=== PATIENT | male | born 1950 | race Caucasian/White ===

== ENCOUNTER 2019-01-30 08:54 | Day surgery (SDC) | payer MEDICARE ==
[2019-01-29 16:15] LABS: BASOPHILS # (AUTO) 0.1 X10'3 (0-0.2); BASOPHILS % (AUTO) 0.7 % (0-1); EOSINOPHILS # (AUTO) 0.5 X10'3 (0-0.9); EOSINOPHILS % (AUTO) 5.3 % (0-6); LYMPHOCYTES # (AUTO) 1.2 X10'3 (1.1-4.8); LYMPHOCYTES % (AUTO) 14.3 % (21-51); MEAN CORPUSCULAR HEMOGLOBIN 32.4 PG (27.0-31.0); MEAN CORPUSCULAR HGB CONC 33.7 g/dL (33.0-36.5); MEAN CORPUSCULAR VOLUME 95.9 FL (78-98); MONOCYTES % (AUTO) 11.2 % (2-12); NEUTROPHILS # (AUTO) 5.9 X10'3 (1.8-7.7); NEUTROPHILS % (AUTO) 68.5 % (42-75); PRE OP HEMATOCRIT 42.9 % (42.0-52.0); PRE OP HEMOGLOBIN 14.5 g/dL (14.0-17.9); PRE OP PLATELET COUNT 198 X10'3 (140-440); RED BLOOD COUNT 4.47 X10'6 (4.70-6.10)
[2019-01-29 16:27] LABS: ALBUMIN 3.6 G/DL (3.4-5.0); ALBUMIN/GLOBULIN RATIO 0.9 (1.1-1.5); ALKALINE PHOSPHATASE 89 IU/L (46-116); BLOOD UREA NITROGEN 15 MG/DL (7-18); CALCIUM 8.9 MG/DL (8.5-10.1); CHLORIDE 108 MMOL/L (99-107); CREATININE 0.79 MG/DL (0.60-1.10); PRE OP ALT 28 U/L (30-65); PRE OP ANION GAP 7 (8-16); PRE OP AST 24 U/L (10-37); PRE OP BILIRUB, TOTAL 0.3 MG/DL (0.0-1.0); PRE OP GLUCOSE 99 MG/DL (70-104); PRE OP SODIUM 141 MMOL/L (135-145); TOTAL CARBON DIOXIDE 26.2 MMOL/L (24-32); TOTAL PROTEIN 7.5 G/DL (6.4-8.2); eGFR > 90 ML/MIN
[2019-01-30] VITALS (11 sets, daily range): BP systolic 110–152; BP diastolic 69–83
[~2019-01-30] VITALS: Ht 182.9 cm; Wt 81.8 kg
[~2019-01-30 08:54] MED LIST: ANTI1CAP5 PO
[2019-01-30] MEDS ORDERED: cefazolin/dext.iso 2gm/100 ML IV ONE (09:00)
[2019-01-30] MEDS ORDERED: ringers solution, lacted 1,000 ML IV SCH ×2 (09:00→11:49)
[2019-01-30] MEDS ORDERED: famotidine 20mg tablet PO ONE (09:00)
[2019-01-30] MEDS ORDERED: fentaNYL/PF 50MCG/1 ML 2ML syringe IV PRN ×2 (11:50)
[2019-01-30] MEDS ORDERED: morphine 4 MG/ML inj SYRINge IV PRN ×2 (11:50)
[2019-01-30] MEDS ORDERED: ondansetron/PF 4mg/2ml inj IV PRN (11:50)
[2019-01-30] MEDS ORDERED: hydrALAZINE 20mg/ml inj. IV PRN (11:50)
[2019-01-30] MEDS ORDERED: labetalol 20mg/4ml (5mg/ml) syringe IV PRN (11:50)
[2019-01-30] MEDS ORDERED: BUPIVAcaine/PF 2.5 mg/ml (0.25%) 30ml vial ONE (12:31)
[2019-01-30] MEDS ORDERED: LIDOcaine 1% 30ml preserv. free vial ONE (12:31)
[2019-01-30] MEDS ORDERED: sevoflurane 250ml liquid IH ONE (12:43)
[2019-01-30] MEDS ORDERED: midazolam 2 mg/2 ml injection ONE (12:49)
[2019-01-30] MEDS ORDERED: fentaNYL/PF 50MCG/1 ML 2ML syringe ONE (12:50)
[2019-01-30] MEDS ORDERED: propofol inj 20 ML IV ONE (12:51)
[2019-01-30] MEDS ORDERED: LIDOcaine 2% (20mg/ml) 5ml vial ONE (12:51)
[2019-01-30] MEDS ORDERED: rocuronium 10mg/ml inj IV ONE (12:52)
[2019-01-30] MEDS ORDERED: dexamethasone sod phosphate 4mg/ml inj. ONE (12:58)
[2019-01-30] MEDS ORDERED: ondansetron/PF 4mg/2ml inj ONE (12:58)
--- NOTE | 2019-01-30 14:35 | NUR ---
ADMITTED TO PACU FROM OR ACCOMPANIED BY ANESTHESIA. INTIAL PHYSICAL ASSESSMENT DONE AND RECORDED. AWAKE AND RESPONSE ON ARRIVE YO PACU, REPORT RECEIVED FROM ANESTHESIA.
--- NOTE | 2019-01-30 16:00 | NUR ---
Discharge criteria met, discharge instructions given, demonstrates verbal understanding. Discharged home in good condition.
== END 2019-01-30 16:00 | disposition home or self-care (01) ==
LOC: PAS 08:54
PROVIDERS: ATTEND Surgery
DX: K40.20 Bilateral inguinal hernia, without obstruction or gangrene, not specified as recurrent (principal); K42.9 Umbilical hernia without obstruction or gangrene; Z98.890 Other specified postprocedural states
CPT/HCPCS: 36415; 49585; 49650; 80053; 82948; 85025; 93005; C1781; J1100; J2001; J2250; J2270; J2405; J2704; J3010; J3490; A4215; A4618; A7000; J7120